=== PATIENT | male | born 1955 | race Caucasian/White ===

== ENCOUNTER 2024-03-13 16:16 | Emergency (ER) | payer OTHER ==
[~2024-03-13] VITALS: Ht 185.4 cm; Wt 109.3 kg
[2024-03-13 18:38] VITALS: BP 160/70; PULSE 99; RESP 18; TEMP 98.2; O2SAT 96
[2024-03-13] MEDS ORDERED: CEPH500C PO (19:36)
== END 2024-03-13 19:47 | disposition home or self-care (01) ==
LOC: ER 16:16
DX: T81.89XD Other complications of procedures, not elsewhere classified, subsequent encounter (principal); E11.9 Type 2 diabetes mellitus without complications; Z48.01 Encounter for change or removal of surgical wound dressing; Y92.89 Other specified places as the place of occurrence of the external cause